=== PATIENT | female | born 1945 | race Caucasian/White ===

== ENCOUNTER 2017-08-13 12:17 | Emergency (ER) | payer OTHER, MEDICARE ==
[~2017-08-13] VITALS: Ht 157.5 cm; Wt 74.0 kg
[2017-08-13 12:22] VITALS: BP 141/74; PULSE 88; RESP 16; TEMP 97.8; O2SAT 95
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
[2017-08-13] MEDS ORDERED: ROBA500T PO (14:30)
== END 2017-08-13 15:01 | disposition home or self-care (01) ==
LOC: NEPC 12:17
DX: S16.1XXA Strain of muscle, fascia and tendon at neck level, initial encounter (principal); M25.511 Pain in right shoulder; M50.321 Other cervical disc degeneration at C4-C5 level; E78.00 Pure hypercholesterolemia, unspecified; I50.9 Heart failure, unspecified; J44.9 Chronic obstructive pulmonary disease, unspecified; Z88.0 Allergy status to penicillin; V49.50XA Passenger injured in collision with unspecified motor vehicles in traffic accident, initial encounter
CPT/HCPCS: 70450; 71045; 72125; 73030; 99284